=== PATIENT | male | born 1980 | race Caucasian/White ===

== ENCOUNTER 2016-07-28 23:59 | Emergency (ER) | payer OTHER ==
--- NOTE | ~2016-07-28 | CR126 ---
[facility] A Service of [facility] RADIOLOGY TEXT RESULTS PATIENT: ERIC RIZO LOCATION: [facility] : 78 UNIT #: [id number] AGE: [address]: Casper Zuñiga MD SEX: M ORDER DR: [id number] [facility] [address] [place], [place] [address] [id number] E MR#: [id number] Acc #: [id number] NAME: ERIC RIZO : 1980 SEX: M STUDY DATE/TIME: 07/29/2016 0126 UNIT: [facility] ROOM: STUDY DESCRIPTION: CR Foot Complete Min 3 View Lt Attending Physician: Casper Zuñiga M.D. Ordering Physician: Jose Hernandez M.D. Primary Care Physician: Mai Wu A.P.R.N. MEDICAL IMAGING REPORT This report is preliminary unless electronic signature is present EXAM Left foot, 07/29, at 0126. INDICATION Foot pain with bump on the lateral side after stepping on glass 1 week ago. FINDINGS 3 views of the left foot are compared with 10/05/2015. There is no fracture or malalignment. There is no soft tissue gas. There are no radiopaque foreign bodies. IMPRESSION No fracture, radiopaque foreign body, or soft tissue gas. Dictated by... Aris Ogden Jr., M.D. THIS IS AN ELECTRONICALLY VERIFIED REPORT Aris Ogden Jr., M.D. at 07/29/2016 12:38 PM MARIAM/shanna TD: 07/29/2016 09:40 JOB #: [id number] MEDICAL IMAGING REPORT Page 1 of 1 COPY
[~2016-07-28 23:59] MED LIST: ACIPHEX20 MG PO; BACTRIM DS TABL1 TAB PO; DOXYCYCLINE HY100 M1; FLAGYL PO; LORTAB 2.5/5001 TAB PO; PHENERGAN PO; VICODIN 5/500 T1 TAB PO
[2016-07-29 02:07] LABS: BASOPHIL% 0.4 % (0-2.5); EOSINOPHIL# 0.1 X10e3 (0-0.7); EOSINOPHIL% 1.5 % (0.0-7.0); HEMOGLOBIN 14.5 gm/dL (13.0-16.0); LYMPHOCYTE# 1.9 X10e3 (1.0-3.5); MEAN CELL VOLUME 81.1 FL (83-96); MEAN CORPUSCULAR HGB CONC 34.5 g/dL (30-36); MEAN PLATELET VOLUME 8.7 FL (6.5-11.5); MONOCYTE# 0.6 X10e3 (0-1.0); MONOCYTE% 7.1 % (3.0-12.0); NEUTROPHIL# 5.1 X10e3 (1.5-7.1); PLATELET COUNT 192 X10e3 (140-420); RED BLOOD COUNT 5.18 X10e (3.90-5.60); RED CELL DISTRIBUTION WIDTH 13.2 % (11.0-15.5); WHITE BLOOD COUNT 7.8 X10e3 (4.0-10.5)
[2016-07-29 02:12] LABS: DIFF IND NO
[2016-07-29 02:29] LABS: ALBUMIN SERUM 4.4 g/dL (3.5-5.0); BILIRUBIN,TOTAL 0.5 mg/dL (0.2-2.0); BUN/CREATININE RATIO 13.84; CREATININE SERUM 1.3 mg/dL (0.6-1.4); GLOM FILT RATE Estimated 70.2 mL/min (>60); POTASSIUM 3.9 mmol/L (3.5-5.1); PROTEIN TOTAL SERUM 7.2 g/dL (6.0-8.3); URIC ACID 4.2 mg/dL (2.6-7.2)
[2016-07-29 02:31] LABS: BILIRUBIN, DIRECT 0.1 mg/dL (0.0-0.2); BILIRUBIN,INDIRECT 0.4 mg/dL (0.0-0.9)
== END 2016-07-29 03:00 | disposition home or self-care (01) ==
LOC: CED 23:59
PROVIDERS: Emergency Medicine
DX: L03.032 Cellulitis of left toe (principal)
CPT/HCPCS: 36415; 73630; 80048; 80076; 84550; 85025; 99283